=== PATIENT | female | born 1990 | race Caucasian/White ===

== ENCOUNTER 2019-03-15 21:55 | Emergency (ER) | payer SELFPAY ==
[~2019-03-15] VITALS: Ht 173 cm; Wt 63.9 kg
[2019-03-15] MEDS ORDERED: LIDOCAINE 2% VISCOUS 15 ML UDC PO ONE (22:15)
[2019-03-15] MEDS ORDERED: CLINDAMYCIN 150 MG (CLEOCIN) CAP PO ONE (22:15)
--- NOTE | 2019-03-15 22:21 | ED EENT ---
History of Present Illness General Chief Complaint: Dental Problems/Pain Stated Complaint: TOOTH PAIN Nursing Triage Note: pt with multiple teeth missing co dental pain right top side of mouth x 5 days Source: patient, family, spouse Exam Limitations: no limitations History of Present Illness Date Seen by Provider: Mar 15, 2019 Time Seen by Provider: 22:02 Initial Comments Patient presents to ER by private conveyance with chief complaint of right-sided facial swelling for the past couple days and dental pain on his right upper premolar for the past few weeks. His plan is to set up a dental appointment tomorrow morning. He does not have any significant medical history. He denies any discharge from the mouth or bleeding. He is not having any difficulty swallowing but he is having pain and has tried Tylenol, ibuprofen, lidocaine. He went to the emergency room in [place], [place] and they gave him meloxicam and told him to follow-up with the dentist but did not put him on antibiotics. Allergies and Home Medications Allergies Coded Allergies: Penicillins (Verified Allergy, Unknown, 03/15/19) amoxicillin (Verified Allergy, Unknown, 03/15/19) Patient Home Medication List Home Medication List Reviewed: Yes Review of Systems Review of Systems Constitutional: No chills, No fever Eyes: Denies Blindness, Denies Drainage Ears: Denies Dizziness, Denies Pain Nose: denies clots, denies congestion Mouth: see HPI Throat: denies pain, denies swelling Past Zzshxgo-Tmcakq-Gtysfq Hx Patient Social History Alcohol Use: Denies Use Recreational Drug Use: Yes Drug of Choice: marijuana Smoking Status: Current Everyday Smoker Type Used: Cigarettes 2nd Hand Smoke Exposure: No Recent Foreign Travel: No Contact w/Someone Who Travel: No Recent Infectious Disease Expo: No Recent Hopitalizations: No Physical Abuse: No Sexual Abuse: No Mistreated: No Fear: No Seasonal Allergies Seasonal Allergies: No Past Medical History Surgeries: Yes (groin hernia) Orthopedic Respiratory: No Cardiac: No Neurological: No Genitourinary: No Gastrointestinal: No Musculoskeletal: No Endocrine: No HEENT: No Cancer: No Psychosocial: No Integumentary: No Blood Disorders: No Physical Exam Vital Signs Vital Signs - First Documented 03/15/19 22:13 Temp 36.3 Pulse 82 Resp 16 B/P (MAP) 109/70 (83) Pulse Ox 99 O2 Delivery Room Air Height, Weight, BMI Height: '" Weight: lbs. oz. kg; 21.00 BMI Method: General Appearance: WD/WN, mild distress Eyes: bilateral eye normal inspection, bilateral eye PERRL, bilateral eye EOMI Nose: normal inspection; No active bleeding Mouth/Throat: dental tenderness (right upper premolar); No foreign body, No tonsillar exudate; other (dental caries same site) Neck: full range of motion, normal inspection Cardiovascular: normal peripheral pulses, regular rate, rhythm Respiratory: no respiratory distress, no accessory muscle use Progress/Results/Core Measures Results/Orders My Orders Orders - JOHNSON RITTER Clindamycin Capsule (Cleocin Capsule) (03/15/19 22:15) Lidocaine 2% Viscous 15 Ml (Xylocaine Vi (03/15/19 22:15) Medications Given in ED Current Medications Medications Dose Ordered Sig/Alejandra Route Start Time Stop Time Status Last Admin Dose Admin Clindamycin HCl 450 mg ONCE ONCE PO 03/15/19 22:15 03/15/19 22:16 DC 03/15/19 22:27 450 MG Lidocaine HCl 15 ml ONCE ONCE PO 03/15/19 22:15 03/15/19 22:16 DC 03/15/19 22:27 15 ML Vital Signs/I&O 03/15/19 22:13 Temp 36.3 Pulse 82 Resp 16 B/P (MAP) 109/70 (83) Pulse Ox 99 O2 Delivery Room Air Blood Pressure Mean: 83 Progress Progress Note : Time: 22:30 Progress Note He already has access to NSAIDs. Plan to give him some viscous lidocaine, clindamycin and set him up to follow with a dentist. Departure Impression Primary Impression: Dental abscess Disposition: 01 HOME, SELF-CARE Condition: Stable Departure-Patient Inst. Decision time for Depature: 22:30 Referrals: NO,LOCAL PHYSICIAN (PCP/Family) Primary Care Physician Patient Instructions: Tooth Abscess (DC) Add. Discharge Instructions: Plan to follow up with a dentist as this will continue to come back until it is surgically treated appropriately. Continue to use Tylenol 1000 g every 8 hours as needed for pain. Ibuprofen 800 mg every 8 hours as needed for pain. Alternatively you can use your meloxicam as prescribed. 1 g of viscous lidocaine packed along the tooth with gauze every 2 hours as needed to control your pain. Start taking clindamycin 450 mg 3 times a day for the next week. Expect to see improvement by day 3. All discharge instructions reviewed with patient and/or family. Voiced understanding. Scripts Clindamycin HCl (Clindamycin HCl) 150 Mg Capsule 450 MG PO TIDWM for 7 Days, #63 CAP 0 Refills Prov: JOHNSON RITTER 03/15/19 Work/School Note: Work Release Form Date Seen in the Emergency Department: Mar 15, 2019 Return to Work: Mar 16, 2019 Restrictions: No Restrictions JOHNSON RITTER Mar 15, 2019 22:21
[2019-03-15] MEDS ORDERED: CLIN150C17 PO (22:33)
[2019-03-15 22:40] VITALS: BP 109/70
== END 2019-03-15 22:39 | disposition home or self-care (01) ==
LOC: ER FS 21:59
DX: K04.7 Periapical abscess without sinus (principal); F17.210 Nicotine dependence, cigarettes, uncomplicated; Z88.0 Allergy status to penicillin
CPT/HCPCS: 99283